=== PATIENT | female | born 1970 | race African-American/Black ===

== ENCOUNTER 2021-04-27 12:21 | Emergency (ER) | payer MEDICAID ==
[~2021-04-27] VITALS: Ht 167.6 cm; Wt 113.0 kg
[2021-04-27 12:30] VITALS: BP 169/76
== END 2021-04-27 12:54 | disposition left against medical advice (07) ==
LOC: ER 12:21
DX: F32.9 Major depressive disorder, single episode, unspecified (principal); F43.10 Post-traumatic stress disorder, unspecified; I10 Essential (primary) hypertension; M19.90 Unspecified osteoarthritis, unspecified site; F10.21 Alcohol dependence, in remission
CPT/HCPCS: 99283